=== PATIENT | female | born 1965 | race Asian ===

== ENCOUNTER 2017-08-25 03:42 | Emergency (ER) | payer BC ==
[~2017-08-25] VITALS: Ht 167.6 cm; Wt 71.2 kg
[~2017-08-25 03:42] MED LIST: LIPI10 PO; NORCO1 TA2 PO; TOR10 PO; TOR30I IV; ZOF4 PO; ZOFI IV
[2017-08-25 04:00] VITALS: Ht 167.6 cm; Wt 71.2 kg
[2017-08-25 09:40] VITALS: BP 110/73
[2017-08-25 09:42] LABS: BASOPHIL % 0.1 % (0-2); PLATELET COUNT 173 x10^3mcL (130-400); RED CELL DISTRIBUTION WIDTH 13.5 % (11.5-14.5)
[2017-08-25 09:50] LABS: CALCIUM 8.5 mg/dL (8.5-10.1); CARBON DIOXIDE 24.8 mmol/L (21-32); CHLORIDE SERUM 106 mmol/L (98-107); CREATININE SERUM 0.9 mg/dL (0.6-1.0); GFR1 > 60 mL/min; GLUCOSE SERUM 114 mg/dL (74-106); POTASSIUM SERUM 3.4 mmol/L (3.5-5.1); SODIUM SERUM 141 mmol/L (136-145)
[2017-08-25 09:54] LABS: ALKALINE PHOSPHATASE 59 U/L (46-116); ALT/SGPT 25 U/L (14-59); AST/SGOT 25 U/L (15-37); BILIRUBIN TOTAL 0.6 mg/dL (0.20-1.00); LIPASE 258 IU/L (73-393)
[2017-08-25 09:55] LABS: ALBUMIN 3.3 g/dL (3.4-5.0)
== END 2017-08-25 10:38 | disposition home or self-care (01) ==
LOC: ED 03:42
PROVIDERS: Emergency Medicine
DX: J11.1 Influenza due to unidentified influenza virus with other respiratory manifestations (principal); N39.0 Urinary tract infection, site not specified; E78.00 Pure hypercholesterolemia, unspecified
CPT/HCPCS: 36415; Q0162

== ENCOUNTER 2019-04-21 22:21 | Emergency (ER) | payer BC ==
[~2019-04-21] VITALS: Ht 167.6 cm; Wt 69.4 kg
[2019-04-21 22:38] VITALS: Ht 167.6 cm; Wt 69.4 kg
[2019-04-22 01:15] VITALS: BP 115/78
== END 2019-04-22 01:15 | disposition home or self-care (01) ==
LOC: ED 22:21
DX: S70.362A Insect bite (nonvenomous), left thigh, initial encounter (principal); L03.116 Cellulitis of left lower limb; L08.9 Local infection of the skin and subcutaneous tissue, unspecified; E78.00 Pure hypercholesterolemia, unspecified; I10 Essential (primary) hypertension; W57.XXXA Bitten or stung by nonvenomous insect and other nonvenomous arthropods, initial encounter; Y93.89 Activity, other specified; Y92.89 Other specified places as the place of occurrence of the external cause; Y99.0 Civilian activity done for income or pay
CPT/HCPCS: Q0163